=== PATIENT | female | born 1955 | race Caucasian/White ===

== ENCOUNTER 2021-08-21 15:54 | Emergency (ER) | payer OTHER, SELFPAY ==
--- NOTE | ~2021-08-21 | CT_ITS ---
EXAMINATION: CT abdomen pelvis wo con EXAM DATE: 08/21/2021 17:19 INDICATION: Right flank pain, hx kidney stones. TECHNIQUE: Spiral CT of the abdomen and pelvis was performed without contrast. Axial, coronal and sag ittal images were reviewed. The dose-length product (DLP) for this examination was 254.11 mGy-cm. T he exposure was tailored according to patient size (auto mA exposure control), and iterative reconstr uction (ASIR) was used as additional dose reduction technique. There is no prior study for compariso n. FINDINGS: There is no nephrolithiasis or hydronephrosis. The uterus is not identified and has likel y been surgically resected. The bladder is unremarkable. The liver, spleen, adrenal glands and panc reas are unremarkable. There are cholecystectomy clips. There is no retroperitoneal or pelvic lymph adenopathy. There are surgical changes consistent with appendectomy. The stomach and small bowel are unremarkab le. There is expected amount of colonic stool. No free intraperitoneal gas. The heart is normal in size. There are no pericardial or pleural effusions. The lung bases are unremarkable. The bones are unremarkable. IMPRESSION: No nephrolithiasis, hydronephrosis or acute intra-abdominal findings. Reviewed, dictated and finalized at location G. IMPRESSION: No nephrolithiasis, hydronephrosis or acute intra-abdominal finding s.
[2021-08-21 15:58] VITALS: BP 133/61; PULSE 71; RESP 16; TEMP 36.6; O2SAT 100
--- NOTE | 2021-08-21 16:26 | ED.BACK ---
HPI - Back Pain/Injury General Chief Complaint: Back Pain/Injury <Jacqueline Del Valle PA-C - Last Filed: 08/21/21 18:31> Stated Complaint: right flank pain, hx kidney stones <Jacqueline Del Valle PA-C - Last Filed: 08/21/21 18:31> Time Seen by Provider: 08/21/21 16:07 <Jacqueline Del Valle PA-C - Last Filed: 08/21/21 18:31> Source: patient <Jacqueline Del Valle PA-C - Last Filed: 08/21/21 18:31> Mode of arrival: ambulatory <Jacqueline Del Valle PA-C - Last Filed: 08/21/21 18:31> Limitations: no limitations <Jacqueline Del Valle PA-C - Last Filed: 08/21/21 18:31> History of Present Illness HPI Narrative: This is a 65-year-old female that presents to the emergency department for right flank pain noted since this morning. Associated with dysuria. Reports history of kidney stones and that she was worried she may have 1 currently. She does not have a urologist currently. Reports nausea. Denies fever, vomiting, or hematuria. <Jacqueline Del Valle PA-C - Last Filed: 08/21/21 18:31> Related Data Allergies/Adverse Reactions: Allergies Allergy/AdvReac Type Severity Reaction Status Date / Time morphine AdvReac Hallucinati Verified 08/21/21 16:53 ng <Jacqueline Del Valle PA-C - Last Filed: 08/21/21 18:31> Review of Systems Review of Systems: CONSTITUTIONAL: Denies fever GASTROINTESTINAL: Reports abdominal pain, nausea. Denies vomiting, or diarrhea. GENITOURINARY: Reports dysuria. Denies hematuria. <Jacqueline Del Valle PA-C - Last Filed: 08/21/21 18:31> All systems reviewed & are unremarkable except as noted in HPI and below <Jacqueline Del Valle PA-C - Last Filed: 08/21/21 18:31> [facility] Surgical History Surgical History: Surgical History (Updated 08/21/21 @ 16:28 by Jacqueline Del Valle PA-C) History of appendectomy History of cholecystectomy History of hysterectomy <Jacqueline Del Valle PA-C - Last Filed: 08/21/21 18:31> Social History Social History: Social History (Updated 08/21/21 @ 16:28 by Jacqueline Del Valle PA-C) Smoking status: Never smoker <Jacqueline Del Valle PA-C - Last Filed: 08/21/21 18:31> Exam Narrative: GENERAL: Well-appearing, well-nourished, and in no acute distress. HEAD: Normocephalic, atraumatic. EYES: EOMI. CHEST: Clear to auscultation. No respiratory distress. No wheezes rales or rhonchi HEART: Regular rate and rhythm. No murmur heard. Normal peripheral pulses. ABDOMEN: Soft, nondistended, normal active bowel sounds. Tender to palpation throughout the right side of the abdomen, without guarding. Right-sided CVA tenderness EXTREMITIES: Normal range of motion. No edema. SKIN: Warm, dry, no rash. NEURO: No focal deficits. Alert and oriented x3. PSYCH: Normal mood and affect <Jacqueline Del Valle PA-C - Last Filed: 08/21/21 18:31> Course COAL CUTTER/PA Physician Supervision For this patient encounter, I reviewed the COAL CUTTER or PA documentation, treatment plan, and medical decision making <Shan Swanson MD - Last Filed: 08/21/21 18:54> Vital Signs Vital signs: Vital Signs Temperature 97.9 F 08/21/21 15:58 Pulse Rate 71 08/21/21 15:58 Respiratory Rate 16 08/21/21 15:58 Blood Pressure 133/61 08/21/21 15:58 Pulse Oximetry 100 08/21/21 15:58 Temperature 97.9 F 08/21/21 15:58 Pulse Rate 71 08/21/21 15:58 Respiratory Rate 16 08/21/21 15:58 Blood Pressure 133/61 08/21/21 15:58 Pulse Oximetry 100 08/21/21 15:58 <Jacqueline Del Valle PA-C - Last Filed: 08/21/21 18:31> Vital Signs Temperature 97.9 F 08/21/21 15:58 Pulse Rate 71 08/21/21 15:58 Respiratory Rate 16 08/21/21 15:58 Blood Pressure 133/61 08/21/21 15:58 Pulse Oximetry 100 08/21/21 15:58 Temperature 97.9 F 08/21/21 15:58 Pulse Rate 71 08/21/21 15:58 Respiratory Rate 16 08/21/21 15:58 Blood Pressure 133/61 08/21/21 15:58 Pulse Oximetry 100 08/21/21 15:58 <Shan Swanson MD - Last Filed: 08/21/21 18:54> MDM - Back Pain/Injury M
[2021-08-21 16:39] LABS: Basophils Percent Auto 0.5 % (0.2-1.2); Eosinophils Absolute Auto 0.1 K/mm3 (0-0.3); Eosinophils Percent Auto 1.1 % (0-4.4); Hematocrit 40.9 % (37.0-47.0); Hemoglobin 14.1 g/dL (12.0-15.0); Immature Granulocyte Absolute 0.01 K/mm3 (0.00-0.031); Immature Granulocyte Percent A 0.2 % (0-0.5); Lymphocytes Absolute Auto 1.36 K/mm3 (0.9-3.2); Lymphocytes Percent Auto 24.5 % (18.3-44.2); Mean Corpuscular HGB Conc 34.5 g/dl (32-36); Mean Corpuscular Hemoglobin 33.7 pg (26-34); Mean Corpuscular Volume 97.6 fl (80-100); Mean Platelet Volume 10.7 fl (7.4-10.4); Monocytes Absolute Auto 0.5 K/mm3 (0.1-0.6); Monocytes Percent Auto 8.6 % (2.6-8.5); Neutrophils Absolute Auto 3.6 K/mm3 (1.3-6.7); Neutrophils Percent Auto 65.1 % (45.5-73.1); Platelet Count Result 205 k/mm3 (150-375); Red Blood Count 4.19 M/mm3 (4.2-5.4); Red Cell Distribution Width 12.1 % (11.5-14.5); White Blood Count 5.6 K/mm3 (4.5-10.0)
[2021-08-21] MEDS: ONDANSETRON INJ 4 MG/2 ML VIAL IV PUSH (16:40)
[2021-08-21] MEDS: HYDROmorphone HCL INJ (*CRX) 1 MG/ML SYR 0.5 MG IV PUSH (16:41)
[2021-08-21 16:50] LABS: Alanine Aminotransferase 19 U/L (4-35); Albumin Level 4.7 g/dL (3.5-5.1); Alkaline Phosphatase 85 U/L (38-126); Anion Gap 6 mmol/L (8-16); Aspartate Amino Transferase 33 U/L (14-36); Bilirubin,Total 1.8 mg/dL (0.2-1.3); Blood Urea Nitrogen 15 mg/dL (7-17); Calcium 9.4 mg/dL (8.4-10.2); Carbon Dioxide 28 mmol/L (22-30); Chloride 103 mmol/L (98-107); Estimated CRCL calculation 67 ml/min; Estimated Glomerular Filt Rate > 60; Glucose 112 mg/dL (65-110); Lipase 38 U/L (23-300); Potassium 3.6 mmol/L (3.4-5.0); Sodium 137 mmol/L (137-145)
[2021-08-21 17:26] LABS: Add Urine Microscopic? YES; Appearance Urine Clear (Clear); Bilirubin Urine Negative (Negative); Blood Urine Negative (Negative); Color Urine Amber (Yellow); Glucose Urine UA Negative (Negative); Ketones Urine Trace mg/dL (Negative); Leukocyte Esterase Ur Negative LEU/UL (Negative); Mucus Urine Rare /lpf; Nitrate Urine Positive (Negative); Protein Urine 1+ mg/dL (Negative); RBC Urine 0-2 /hpf (0-2); Specific Grav Ur 1.024 (1.001-1.035); Squamous Epithelial Cell Urine Occasional /hpf (Few)
[2021-08-21] MEDS: KETOROLAC 15 MG/ML VIAL (*BKC) IV PUSH (18:52)
[2021-08-21 18:56] VITALS: BP 120/77; PULSE 60; RESP 18; O2SAT 100
== END 2021-08-21 19:18 | disposition home or self-care (01) ==
PROVIDERS: Physician Assistant; Emergency Provider Emergency Medicine
DX: N10 Acute pyelonephritis (principal); Z87.442 Personal history of urinary calculi
CPT/HCPCS: 36415; 74176; 80053; 81001; 83690; 85025; 87077; 87086; 87186; 96365; 96367; 96375; 99284; J0131; J0696; J1170; J1885; J2405